=== PATIENT | female | born 1965 | race African-American/Black ===

== ENCOUNTER 2021-06-25 08:58 | Day surgery (SDC) | payer OTHER ==
[2021-06-25] MEDS ORDERED: PROPOFOL 20 ML ONE ×4 (09:05)
[2021-06-25] MEDS ORDERED: LIDOCAINE HCL/PF 2% SDV 5ML VIAL ONE (09:05)
[2021-06-25 09:22] VITALS: BMI 29.2
[2021-06-25] MEDS ORDERED: ONDANSETRON 4 MG/2 ML VIAL ONE (10:32)
[2021-06-25] MEDS ORDERED: PHENYLEPHRINE HCL 10 MG/1 ML SINGLE DOSE VIAL ONE (10:45)
[2021-06-25] MEDS ORDERED: ATROPINE SO4 0.4 MG/1 ML VIAL ONE (10:45)
[2021-06-25] MEDS ORDERED: ePHEDrine SULFATE 50 MG/1 ML AMPULE ONE (10:45)
[2021-06-25 11:39] VITALS: TEMP 97.1
[2021-06-25 11:54] VITALS: BP 124/74; PULSE 86
== END 2021-06-25 12:10 | disposition home or self-care (01) ==
LOC: FASU-ENDO 08:58
PROVIDERS: ATTEND Internal Medicine Gastroenterology
PROC: 0DBN8ZX Excision of Sigmoid Colon, Via Natural or Artificial Opening Endoscopic, Diagnostic (ICD-10-PCS; principal; 2021-06-25 10:55)
DX: Z86.010 Personal history of colon polyps (principal); D12.5 Benign neoplasm of sigmoid colon; K64.1 Second degree hemorrhoids
CPT/HCPCS: 88305-TC